=== PATIENT | female | born 1970 | race Caucasian/White ===

== ENCOUNTER 2024-09-23 15:49 | Outpatient (CLI) | payer BC, SELFPAY ==
--- NOTE | ~2024-09-23 | MM_ITS ---
EXAMINATION: MM screening edvin BI w veronica HISTORY: Screening TECHNIQUE: Craniocaudal and mediolateral oblique 3-D tomosynthesis images were obtained and synthetic 2-D images were generated. CAD analysis was submitted and interpreted. COMPARISON: No prior mammogram is available for comparison at this institution. BREAST PARENCHYMAL COMPOSITION: Not dense: There are scattered areas of fibroglandular density. FINDINGS: There is no evidence of suspicious mass, calcification, or architectural distortion to sugg est malignancy in either breast. There has been no suspicious interval change. IMPRESSION: 1. No mammographic evidence of malignancy. 2. Recommend routine screening mammography in one year. BI-RADS Category 1: Negative Reviewed, dictated and finalized at location B. URE PACKER
--- OUTSIDE RECORDS SUMMARY | 2024-09-23 16:20 | XMS_ITS | Encounter Summary ---
Author Organization [facility] Address [address] [place] [address] Phone Care Team Providers Care Electrician'S Assistant Name Role Phone Brandee Huerta MD Primary Care Pro vider Encounter Details Date Type Department Care Team (Late st Contact Info) Description 12/03/2017 Orders Only [facility] ProviderReuben MD [address] [place] [address] Social History Tobacco Use Types Packs/Day Years Used Date Smoking Tobacco: Never Assessed Comments Unknown Sex and Gender Information Value Date Recorded Sex Assigned at Not on file Legal Sex Female 4:27 PM CDT Gender Identity Female 07/23/2024 3:08 PM LABOR SUPERVISOR Sexual Orientation Asexual 07/23/2024 3: 08 PM LABOR SUPERVISOR documented as of this encounter Plan of Treatment Not on file documented as of this encounter Procedures Procedure Name Priority Date/Time Associated Diagnosis Comments CYTOLOGY 12/03/2017 12:00 AM CDT documented in this encounter Results * CYTOLOGY (12/03/2017 12:00 AM CDT) Narrative 12/03/2017 12:00 AM CDT Ordered by an unspecified provider. Historical Provider LAB CYTOLOGY ORDERABLES F inal Result documented in this encounter Visit Diagnoses Not on filedocumented in this encounter Additional Health Concerns Infection Onset Date Last Indicated Resolved Time COVID: Suspected 02/16/2020 02/16/2020 02/20/2020 2:46 PM CDT Respiratory Infection (NAKUL), contact + droplet Comment:Automatically added due to negative COVID-19 result. 02/20/2020 02/20/2020 03/05/2020 3:0 7 AM CDT documented as of this encounter Care Teams Electrician'S Assistant Relationship Specialty Start Date End Date Brandee Huerta MD PCP - General Family Medicine 02/16/20 documented as of this encounter
--- OUTSIDE RECORDS SUMMARY | 2024-09-23 16:20 | XMS_ITS | Clinical Summary ---
Author Organization [address] Address [facility] [place] [address] Care Team Providers Care Sheetrock Applicator Name Role Phone Brandee Huerta MD Primary Care Pro vider Allergies Active Allergy Reactions Criticality Noted Date Comments Latex Rash Medium 02/16/2020 sensitivity Medications acyclovir (ZOVIRAX) 800 mg tablet TAKE 1 TABLET BY MOUTH TWICE DAILY FOR 10 DAYS 20 tablet 06/18/2020 Active amLODIPine (NORVASC) 10 mg tablet Take 1 tablet (10 mg total) by mouth daily 07/16/2024 Active amLODIPine (NORVASC) 5 mg tablet 05/12/2024 Active lisinopriL (PRINIVIL,ZESTRI L) 10 mg tablet Take 1 tablet (10 mg total) by mouth daily 07/16/2024 Active sodium, potassium & mag sulfates (SUPREP BOWEL KIT) 17.5-3.13-1.6 gram recon soln Take 177 mL by mouth every 12 (twelve) hours 06/17/2024 Active valACYclovir (VALTREX) 500 mg tablet Take 1 tablet (500 mg) by mouth twice daily for 3 days. 6 tablet 5 07/25/2024 5 Active Active Problems Problem Noted Date Diagnosed Date Pre-op evaluation 02/16/2020 Assessment & Plan (02/17/2020 8:22 AM CDT): Preoperative examination Procedure: plantar fascia release Date: 02/18/2020 Surgeon: Dr. Ardon Risk of procedure: intermediate RCRI: Class I risk, 3.9 % 30-day risk of , [place], or cardiac arrest METs: moderate Personal or family hx of problems with anesthesia: no Medical History / Risk factors: Cardiovascular disease (IN, angina, arrhythmia, HF): no Lung disease (asthma, COPD): no GI disease (liver, gall bladder): no Uro/Renal disease (CKD, nephrolithiasis): no MSK disease (neck or jaw pain/stiffness/arthritis): plantar fascitis and some arthritis Neurological disease (seizures, CVA): no Endocrine disease (thyroid, DM2): no Labs within normal limits. No indications for EKG or chest XR. Overall assessment of risk: low Annual physical exam 02/16/2020 Assessment & Plan (02/16/2020 2:42 PM CDT): Never smoker Alcohol use PAP: 11/2017, s/p hysterectomy BP 132/82, working on weight loss, continue to monitor PHQ9: 0 Body mass index is 37.46 kg/m . Discussed diet and exercise Check labs Class 2 obesity due to exces s calories without serious comorbidity with body mass index (BMI) of 37.0 to 37.9 in adult 02/16/2020 Assessment & Plan (02/16/2020 2:43 PM CDT): BMI Follow-up includes: nutrition counseling and exercise counseling. Encounters Date Type Department Care Team Description 07/25/2024 11:10 AM SOFTWARE SYSTEMS ANALYST Lab [facility] Office Building [address] [place] [address] Artificial menopause 07/25/2024 10:00 AM SOFTWARE SYSTEMS ANALYST Office Visit [facility] Obstetrical Gynecology [address] [place] [address] [address] [place] [address] Dilma Lou MD Well woman exam with routine gynecological exam (Primary Dx); Artificial menopause from Last 3 Months Surgical History Surgery Date Site/Laterality Comments SECTION HYSTERECTOMY Family History Medical History Relation Name Comments Hyperlipidemia Brother Hypertension Brother Alzheimer's disease Father Bladder Cancer Father Colon cancer Father Prostate cancer Father Skin cancer Father Heart attack Maternal Grandfather Epilepsy Maternal Grandmother Hypertension Mother Alzheimer's disease Paternal Grandmother Deep vein thrombosis Sister 1 Heart attack Sister 1 Irritable bowel syndrome Sister 1 Rheum arthritis Sister 1 Stroke Sister 1 Breast cancer Neg Hx Ovarian cancer Neg Hx Uterine cancer Neg Hx Relation Name Status Comments Brother Alive Father Maternal Grandfather Maternal Grandmother Mother Alive Paternal Grandfather Paternal Grandmother Sister 1 Alive Sister 2 Alive Social History Tobacco Use Types Packs/Day Years Used Date Smoking Tobacco: Never Smokeless Tobacco: Never Alcohol Use Standard Drinks/Week Comments Yes 0 (1 standard drink = 0.6 oz pur e alcohol) PHQ-2 Answer Date Recorded PHQ-2 Total Score 0 02/16/2020 Comments No Sex and Gender Information Value Date Recorded Sex Assigned at Not on file Legal Sex Female 4:27 PM CDT Gender Identity Female 07/23/2024 3:08 PM SOFTWARE SYSTEMS ANALYST Sexual Orientation Asexual 07/23/2024 3: 08 PM SOFTWARE SYSTEMS ANALYST Obstetrics History Para Term AB IAB SAB Ectopic Multiple Livin g Live Births 2 2 2 2 2 Date Outcome GA Total Labor Labor/2nd/3rd Weight Sex Type Anes PTL Samantha A1 A5 Name Clin Term Term Comments 06/10/48 Last Filed Vital Signs Vital Sign Reading Time Taken Comments Blood Pressure 160/80 07/25/2024 10:33 AM SOFTWARE SYSTEMS ANALYST Pulse 53 02/18/2020 8:41 AM CDT Temperature 36.7 C (98.1 F) 02/18/2020 8:41 AM CDT Respiratory Rate 16 02/16/2020 2:15 PM CDT Oxygen Saturation 99% 02/18/2020 8:41 AM CDT Inhaled Oxygen Concentration - - Weight 171 kg (377 lb) 07/25/2024 10:33 AM SOFTWARE SYSTEMS ANALYST Height 174 cm (5' 8.5 ) 07/25/2024 10:33 AM SOFTWARE SYSTEMS ANALYST Body Mass Index 56.49 07/25/2024 10:33 AM SOFTWARE SYSTEMS ANALYST Plan of Treatment Health Maintenance Due Date Last Done Comments Colon Cancer Screening-Colonoscopy 1970 Hepatitis C Screening 1970 Hepatitis B Screening 1988 Breast Cancer Screening-Mammogram 12/24/2018 12/24/2017, 12/24/2017 Depression Screening 02/15/2021 02/16/2020, 02/16/2020 Covid-19 Vaccine (4 - 4-2 5 season) 2024 09/11/2021, 03/25/2021, 03/04/2021 Influenza Vaccine (#1) 2024 Zoster Vaccine (2 of 2) 05/09/2024 03/14/2024 Regular Well Visit/Exam 18-64 07/25/2025, 02/16/2020 DTaP/Tdap/Td Vaccine (2 - Td or Tdap) 03/14/2034 03/14/2024 Pneumococcal vaccine <65 Aged Out No longer eligible based on patient's age to complete this topic Procedures Procedure Name Priority Date/Time Associated Diagnosis Comments FOLLICLE STIMULATING HORMONE Routine 07/25/2024 11:50 AM SOFTWARE SYSTEMS ANALYST Artificial menopause ESTRADIOL Routine 07/25/2024 11:50 AM SOFTWARE SYSTEMS ANALYST Artificial menopause HM MAMMOGRAPHY Routine 12/24/2017 from Last 3 Months or Most Recently Relevant to Health Maintenance Results * Estradiol (07/25/2024 11:50 AM SOFTWARE SYSTEMS ANALYST) Estradiol 60.6 pg/mL Comment: Interpretive Data Males: 11 43 pg/mL Females: Premenopausal: 31 533 pg/mL Postmenopausal: < 50 pg/mL Patients treated with Fluvestrant (Faslodex) should be tested using an alternate assay such as LC-MS due to potential for cross-reactivity. Estradiol varies widely throughout the menstrual cycle. Current interpretive data was last revised 2024. Blood 07/25/2024 11:5 0 AM SOFTWARE SYSTEMS ANALYST 07/25/2024 3:09 PM SOFTWARE SYSTEMS ANALYST Narrative CONSTANZADAVID - 07/25/2024 3:45 PM SOFTWARE SYSTEMS ANALYST Is patient taking Fulvestrant?->No us Dilma Lou MD LAB BLOOD ORDERABLES Adelaida l Result JUAN LUIS [address] [facility] Department [place] [address] * Follicle stimulating hormone (07/25/2024 11:50 AM SOFTWARE SYSTEMS ANALYST) FSH 11.9 1.5 - 12.4 IUnits/L Blood 07/25/2024 11:5 0 AM SOFTWARE SYSTEMS ANALYST 07/25/2024 3:09 PM SOFTWARE SYSTEMS ANALYST Dilma Lou MD LAB BLOOD ORDERABLES Adelaida marcello Result CERNER MH [address] [facility] Department [place] [address] * MAMMOGRAPHY (12/24/2017) Mammogram Normal Historical Provider HEALTH MAINTENANCE Final Result from Last 3 Months or Most Recently Relevant to Health Maintenance Insurance [facility] CHOICE OOS [facility] ACCESS CHOICE CrossCurrent ACCESS CHOICE Care Teams Sheetrock Applicator Relationship Specialty Start Date End Date Brandee Huerta MD PCP - General Family Medicine 02/16/20
--- OUTSIDE RECORDS SUMMARY | 2024-09-23 16:20 | XMS_ITS | Referral Summary ---
Author Organization [place] [id number] [facility] Address [address] [place] [address] Care Team Providers Care Mold Tooler Name Role Phone Brandee Huerta MD Primary Care Pro vider Encounters Date Type Department Care Team Description 07/25/2024 11:10 AM TAKER DOWN Lab [facility] Office Building [address] [place] [address] Artificial menopause 07/25/2024 10:00 AM TAKER DOWN Office Visit [facility] Obstetrical Gynecology [address] [place] [address] [address] [place] [address] Dilma Lou MD Well woman exam with routine gynecological exam (Primary Dx); Artificial menopause from Last 3 Months Allergies Active Allergy Reactions Criticality Noted Date [...] risk, 3.9 % 30-day risk of , [place], or cardiac arrest METs: moderate Personal or family hx of problems with anesthesia: no Medical History / Risk factors: Cardiovascular disease (AR, angina, arrhythmia, HF): no Lung disease (asthma, [...] Follow-up includes: nutrition counseling and exercise counseling. Social History Tobacco Use Types Packs/Day Years [...] CDT Gender Identity Female 07/23/2024 3:08 PM TAKER DOWN Sexual Orientation Asexual 07/23/2024 3: 08 PM TAKER DOWN Last Filed Vital Signs Vital Sign Reading Time Taken Comments Blood Pressure 160/80 07/25/2024 10:33 AM TAKER DOWN Pulse 53 02/18/2020 8:41 AM CDT Temperature 36.7 C (98.1 F) 02/18/2020 8:41 AM CDT Respiratory Rate 16 02/16/2020 2:15 PM CDT Oxygen Saturation 99% 02/18/2020 8:41 AM CDT Inhaled Oxygen Concentration - - Weight 171 kg (377 lb) 07/25/2024 10:33 AM TAKER DOWN Height 174 cm (5' 8.5 ) 07/25/2024 10:33 AM TAKER DOWN Body Mass Index 56.49 07/25/2024 10:33 AM TAKER DOWN Plan of Treatment Not on file Procedures Procedure Name Priority Date/Time Associated Diagnosis Comments FOLLICLE STIMULATING HORMONE Routine 07/25/2024 11:50 AM TAKER DOWN Artificial menopause ESTRADIOL Routine 07/25/2024 11:50 AM TAKER DOWN Artificial menopause HM MAMMOGRAPHY Routine 12/24/2017 from Last 3 Months or Most Recently Relevant to Health Maintenance Results * Estradiol (07/25/2024 11:50 AM TAKER DOWN) Estradiol 60.6 pg/mL Comment: Interpretive Data Males: 11 43 pg/mL Females: Premenopausal: 31 533 pg/mL Postmenopausal: < 50 pg/mL Patients treated with Fluvestrant (Faslodex) should be tested using an alternate assay such as LC-MS due to potential for cross-reactivity. Estradiol varies widely throughout the menstrual cycle. Current interpretive data was last revised 2024. Blood 07/25/2024 11:5 0 AM TAKER DOWN 07/25/2024 3:09 PM TAKER DOWN Narrative CERNER MH - 07/25/2024 3:45 PM TAKER DOWN Is patient taking Fulvestrant?->No Dilma Lou MD LAB BLOOD ORDERABLES Adelaida l Result JUAN LUIS [address] [facility] [place] [address] * Follicle stimulating hormone (07/25/2024 11:50 AM TAKER DOWN) [facility] FSH 11.9 1.5 - 12.4 IUnits/L Blood 07/25/2024 11:5 0 AM TAKER DOWN 07/25/2024 3:09 PM TAKER DOWN Dilma Lou MD LAB BLOOD ORDERABLES Adelaida l Result JUAN LUIS [address] [place] [address] * MAMMOGRAPHY (12/24/2017) Pathologist [facility] Mammogram Normal Historical Provider HEALTH MAINTENANCE Final Result from Last 3 Months or Most Recently Relevant to Health Maintenance Insurance [employer] ANTHEM ACCESS CHOICE ANTHEM ACCESS CHOICE Care Teams Mold Tooler Relationship Specialty Start Date End Date Brandee Huerta MD PCP - General Family Medicine 02/16/20
--- OUTSIDE RECORDS SUMMARY | 2024-09-23 16:20 | XMS_ITS | Encounter Summary ---
Author Organization [facility] Care Team Providers Care Box Office Attendant Name Role Phone Brandee Huerta MD Primary Care Pro vider Encounter Details Date Type Department Care Team (Latest Contact Info) Description 07/17/2018 Orders Only [facility]INCON[facility] Provider, MD Reuben [address] [place] [address] Social History Tobacco Use Types Packs/Day Years Used Date Smoking Tobacco: Never Assessed Comments Unknown Sex and Gender Information Value Date Recorded Sex Assigned at Not on file Legal Sex Female 4:27 PM CDT Gender Identity Female 07/23/2024 3:08 PM FORK OPERATOR Sexual Orientation Asexual 07/23/2024 3: 08 PM FORK OPERATOR documented as of this encounter Plan of Treatment Not on file documented as of this encounter Procedures Procedure Name Priority Date/Time Associated Diagnosis Comments SCAN - PATHOLOGY 07/17/2018 12:0 0 AM FORK OPERATOR documented in this encounter Results * SCAN - PATHOLOGY (07/17/2018 12:00 AM FORK OPERATOR) Narrative 07/17/2018 12:00 AM FORK OPERATOR Ordered by an unspecified provider. us Historical Provider Final Res ult documented in this encounter Visit Diagnoses Not on filedocumented in this encounter Additional Health Concerns Infection Onset Date Last Indicated Resolved Time COVID: Suspected 02/16/2020 02/16/2020 02/20/2020 2:46 PM CDT Respiratory Infection (NAKUL), contact + droplet Comment:Automatically added due to negative COVID-19 result. 02/20/2020 02/20/2020 03/05/2020 3:0 7 AM CDT documented as of this encounter Care Teams Box Office Attendant Relationship Specialty Start Date End Date Brandee Huerta MD PCP - General Family Medicine 02/16/20 documented as of this encounter
--- OUTSIDE RECORDS SUMMARY | 2024-09-23 16:20 | XMS_ITS | Clinical Summary ---
Author Organization [facility] Address [address] [place] [address] Care Team Providers Care Enamel Pulverizer Name Role Phone Ira Omalley MD Primary Care Provider [phone] Allergies Active Allergy Reactions Criticality Noted Date Comments Latex Rash Medium 02/16/2020 sensitivity Medications Multiple Vitamins-Mineral s (MULTI-VITAMIN GUMMIES OR) Active Na sulfate-K sulfate-Mg sulfate (SUPREP BOWEL PREP KIT) 17.5-3.13-1.6 GM/177ML SolutionIndicati ons:Screening for colon cancer,Family history of colon cancer in father Take 177 mLs by mouth every 12 (twelve) hours. Per GI instructions 354 mL 4 Active Additional Information Patient not taking.Reported on 07/16/2024 amLODIPine (NORVASC) 10 MG tabletIndication s:Benign hypertension Take 1 tablet (10 mg total) by mouth daily. 90 tablet 1 Active lisinopril (PRINIVIL) 10 MG tabletIndication s:Benign hypertension Take 1 tablet (10 mg total) by mouth daily. 90 tablet 1 4 Active Active Problems Problem Noted Date Diagnosed Date Family history of colon cancer in father 024 IFG (impaired fasting glucose) 05/12/2024 High cholesterol 05/12/2024 Class 3 severe obesity due t o excess calories with serious comorbidity and body mass index (BMI) of 40.0 to 44.9 in adult ([facility]/HCC) 05/12/2024 Benign hypertension 05/12/2024 Snoring 05/12/2024 Resolved Problems Problem Noted Date Diagnosed Date Resolved Date Screening for colon cancer 06/17/2024 1 08/23/2023 Encounters Date Type Department Care Team Description 09/02/2024 Telephone [facility] [address], [address] [place] [phone] Ira Omalley MD Information 08/25/2024 Scan HEALTH INFO SRVCS Scanned, [facility] 07/25/2024 MyChart Message Enc [facility] [address], [address] [place] [address] [phone] Ira Omalley MD Blood pressure 07/16/2024 10:00 AM SENIOR NURSE MANAGER Office Visit [facility] [address], [address] [place] [phone] Ira Omalley MD Hypertension (Htn f/u. [facility]) 07/16/2024 Travel 07/04/2024 Scan HEALTH INFO SRVCS Scanned, [facility] 06/25/2024 Telephone [facility] [address] [facility], [address] [place] [address] [phone] Ira Omalley MD Results (Sleep Study ) 06/23/2024 MyCElixservet Message Enc [facility] [address] [facility], [address] [place] [address] [phone] [facility] Provider Appointment from Last 3 Months Immunizations Name Administration Dates Next Due Shingrix 03/14/2024 Tdap (Generic) 03/14/2024 Family History Medical History Relation Comments Cancer Father skin, bladder Colon Cancer Father Prostate Cancer Father Heart Attack Mother Hypertension Mother Arthritis Sister Stroke Sister Relation Status Comments Father Mother Sister Social History Tobacco Use Types Packs/Day Years Used Date Smoking Tobacco: Never Passive Smoke Exposure: Past Smokeless Tobacco: Never Tobacco Cessation:Counseling Given: No Alcohol Use Standard Drinks/Week Comments Yes 1.7 (1 standard drin k = 0.6 oz pure alcohol) I have an occasional drink. Sometimes not even 1/week ; or w PHQ-2 Answer Date Recorded Patient Health Questionnaire-2 Score 0 06/17/2024 Comments No Sex and Gender Information Value Date Recorded Sex Assigned at Not on file Legal Sex Female 5:32 PM CDT Gender Identity Not on file Sexual Orientation Not on file Last Filed Vital Signs Vital Sign Reading Time Taken Comments Blood Pressure 180/110 07/16/2024 10:35 AM SENIOR NURSE MANAGER 2nd bp taken by pcp Pulse 79 07/16/2024 9:59 AM SENIOR NURSE MANAGER Temperature 36.6 C (97.9 F) 07/16/2024 9:59 AM SENIOR NURSE MANAGER Respiratory Rate 18 07/16/2024 9:59 AM SENIOR NURSE MANAGER Oxygen Saturation 100% 07/16/2024 9:5 9 AM SENIOR NURSE MANAGER Inhaled Oxygen Concentration - - Weight 124.4 kg (274 lb 3.2 oz) 07/16/2024 9:59 AM SENIOR NURSE MANAGER Height 172.7 cm (5' 8 ) 07/16/2024 9:59 AM SENIOR NURSE MANAGER Body Mass Index 41.69 07/16/2024 9:59 AM SENIOR NURSE MANAGER Plan of Treatment Upcoming Encounters Date Type Department Care Team (Late st Contact Info) Description 12/29/2024 10:00 AM CDT Hospital Encounter [facility] [place] [address] Lew Reveles MD [address] [phone] 12/29/2024 10:00 AM CDT - 12/29/2024 10:[address] [facility] [address] Lew Reveles MD [address] [address] COLONOSCOPY Scheduled Procedures Name Priority Associated Diagnoses Date/Ti me COLONOSCOPY Screening for colon cancer Family history of colon cancer in father 12/29/2024 10:00 AM CDT Health Maintenance Due Date Last Done Comments Colorectal Cancer Screening Colonoscopy (10 Years) 1970 Hepatitis C 1988 Hepatitis B Vaccines (1 of 3 - 19+ 3-dose series) 1989 Mammogram Screening 12/25/2019 12/24/2017 COVID-19 Vaccine (4 - 2023-2 5 season) 2024 09/11/2021, 03/25/2021, 03/04/2021 Zoster Vaccines (2 of 2) 05/09/2024 03/14/2024 Influenza Adult (#1) 2024 PHQ-2 (Physician Ute) 08/13/2024 06/17/2024 Annual Physical 04/09/2025 04/09/2024 PHQ-2 (Physician Ute) 06/17/2025 06/17/2024 DTaP, Tdap and Td Vaccines ( 2 - Td or Tdap) 03/14/2034 03/14/2024 Meningococcal B Vaccine Aged Out No l onger eligible based on patient's age to complete this topic Meningococcal Vaccine Aged Out No maegan lily eligible based on patient's age to complete this topic Pneumococcal Vaccine: Pediatrics (0 to 5 Years) and At-Risk Patients (6 to 64 Years) Aged Out No longer eligible b ased on patient's age to complete this topic RSV Immunizations Under 20 Months Aged Out No longer eligible b ased on patient's age to complete this topic Insurance Care Teams Enamel Pulverizer Relationship Specialty Start Date End Date Ira Omalley MD [address] [facility] [address] [place] [phone] PCP - General FAMILY PRACTICE 04/09/24
== END 2024-09-23 15:50 | disposition home or self-care (01) ==
LOC: ANHIMG 15:53
PROVIDERS: Visit Provider Family Medicine
DX: Z12.31 Encounter for screening mammogram for malignant neoplasm of breast (principal)
CPT/HCPCS: 77063; 77067